=== PATIENT | male | born 1935 | race Caucasian/White ===

== ENCOUNTER 2022-03-25 17:26 | Inpatient (IN) | payer MEDICARE ==
[~2022-03-25] VITALS: Ht 157.5 cm; Wt 60.8 kg
[2022-03-25 17:33] VITALS: BP 152/76
--- NOTE | 2022-03-25 17:35 | NUR ---
86M BIBA from home with c/o SOB for 3 days. Per EMS, family reports pt was seen on unknown day and unknown facility for similar symptoms, progressively have gotten worse; Rx of FLomax and Azythromycin given with no relief. Pt tachypneic at 29 respirations upon arrival, O2 Sat 96%. Pt placed on bedside monitor, Dr. Christopher made aware of pt status.
[2022-03-25 18:09] LABS: HEMATOCRIT 24.8 % (36-52); HEMOGLOBIN 7.6 g/dL (12.0-18.0); MEAN CORPUSCULAR HEMOGLOBIN 29 pg (27-31); MEAN CORPUSCULAR HGB CONC 30 g/dL (33-37); MEAN CORPUSCULAR VOLUME 96.9 fL (80-94); PLATELET COUNT (AUTO) 353 K/uL (140-450); RED BLOOD CELL COUNT(AUTO) 2.56 MIL/uL (4.20-6.10); RED CELL DISTRIBUTION WIDTH 18.8 % (11.6-13.7); WHITE BLOOD COUNT (AUTO) 18.3 K/uL (4.8-10.8)
[2022-03-25 18:37] LABS: LYMPHOCYTES % (MANUAL) 13 % (20-46); MONOCYTES % (MANUAL) 1 % (5-12)
[2022-03-25] MEDS ORDERED: cefTRIAXone 2,000 MG in DEXTROSE 5% 100 ML IV ONE (18:50)
[2022-03-25] MEDS ORDERED: ASPIRIN 325 MG TAB PO ONE (18:50)
[2022-03-25 18:56] LABS: ALBUMIN 2.9 g/dL (3.4-5.0); ANION GAP 23.3 (8-16); ASPARTATE AMINOTRANSFERASE 57 U/L (15-37); CARBON DIOXIDE 15.9 mmol/L (21-32); CHLORIDE 132 mmol/L (98-107); GLUCOSE 96 mg/dL (74-106); POTASSIUM 5.2 mmol/L (3.5-5.1); TOTAL BILIRUBIN 0.3 mg/dL (0.0-1.0)
[2022-03-25 19:01] LABS: CREATININE 6.4 mg/dL (0.6-1.3); SODIUM SERUM 166 mmol/L (136-145); UREA NITROGEN, BLOOD 113 mg/dL (7-18)
[2022-03-25] MEDS ORDERED: cefTRIAXone 2,000 MG VIAL ONE (19:20)
[2022-03-25] MEDS ORDERED: NACL 0.9% 1,000 ML IV ONE (19:20)
--- NOTE | 2022-03-25 19:40 | NUR ---
Pt taken to CT
[2022-03-25] MEDS ORDERED: MAG SULF 2000 MG/WATER PREMIX 50 ML IV PRN (20:00)
--- NOTE | 2022-03-25 20:20 | NUR ---
Urine collected and sent to lab
--- NOTE | 2022-03-25 20:30 | NUR ---
Spoke with Piyush LAN for PICC line insertion, stated due to hx of kidney disease needs clearance from plant protection supervisor in order to place. Dr. Gale made aware.
[2022-03-25 20:36] LABS: APPEARANCE,URINE CLOUDY (CLEAR); BILIRUBIN,URINE NEGATIVE (NEGATIVE); BLOOD, URINE 3+ (NEGATIVE); COLOR,URINE YELLOW (YELLOW); LEUKOCYTE ESTERASE ,URINE NEGATIVE (NEGATIVE); NITRITE, URINE NEGATIVE (NEGATIVE); UGLUCOSE NEGATIVE (NEGATIVE)
[2022-03-25 20:49] LABS: RBC,URINE 11-20 (MOD) /HPF (0-5); WBC,URINE 16-25 (MOD) /HPF (0-5)
--- NOTE | 2022-03-25 20:50 | NUR ---
MSESI SISTER [phone]
[2022-03-25] MEDS ORDERED: ONDANSETRON 4 MG/2 ML VIAL IVP PRN (21:10)
[2022-03-25] MEDS ORDERED: MORPHINE SULFATE 2 MG/ML SYR IVP PRN (21:10)
[2022-03-25] MEDS ORDERED: POTASSIUM CHLORIDE 10 MEQ TABER PO PRN (21:10)
[2022-03-25] MEDS ORDERED: ZOLPIDEM 10 MG TAB PO PRN (21:10)
[2022-03-25] MEDS ORDERED: DOCUSATE SODIUM 100 MG GELCAP PO PRN (21:10)
[2022-03-25] MEDS ORDERED: ACETAMINOPHEN 325 MG TAB PO PRN (21:10)
[2022-03-25] MEDS ORDERED: LORazepam 2 MG/ML VIAL IVP PRN (21:10)
[2022-03-25] MEDS ORDERED: hePARIN / DEXT 5% PREMIX 250 ML IV SCH (21:15)
--- NOTE | 2022-03-25 21:22 | NUR ---
Report given for transfer of care to Tabitha LAN
[2022-03-25 22:03] LABS: PROTHROMBIN TIME 11.4 secs (10.8-13.4)
[2022-03-25] MEDS ORDERED: SODIUM POLYSTYRENE 15 GM/60 ML UDBTL PO ONE (22:10)
[2022-03-25] MEDS ORDERED: DEXTROSE 50% 50 ML SYR IVP ONE (22:10)
[2022-03-25] MEDS ORDERED: INSULIN REGULAR, HUMAN 100 UNIT/ML VIAL IVP ONE (22:10)
[2022-03-25] MEDS ORDERED: CALCIUM CHLORIDE 10% 1,000 MG in NACL 0.9% 100 ML IV SCH (22:10)
--- NOTE | 2022-03-25 22:10 | NUR ---
RECEIVED 86 YO MALE WITH DX OF CKD, NON-STEMI, AND SEPSIS SECONDARY TO PNA. A/0X1. SKIN REPORTED INTACT BUT DOES INDEED HAVE SKIN TEARS X3 TO LEFT HAND AND X1 TO LEFT ELBOW. ALSO SO OPEN SLIT AT TOP OF BUTT CRACK. CHIEF COMPLAINT RELAYED BY CAREGIVER IS "PHLEGM AND NOT EATING OR DRINKING IN 3 DAYS". C/C RELATED BY ER WAS SOB X 3 DAYS. . PT CONTINUES TO SAT IN MID TO HIGH 90'S ON ROOM AIR.
--- NOTE | 2022-03-25 22:30 | NUR ---
ORDERS RECEIVED FROM [facility] FOR CALCIUM COCKTAIL: 5 UNITS REG INSULIN IVX1, 1 AMP D50 IV X1, 1 AMP CALCIUM CHLORIDE IVX1, 38 GRAMS KEXALATE X1 PO. STAT METABOLIC PANEL ONCE COMPLETE.
[2022-03-26] VITALS: BP 163/76
[2022-03-26] MEDS ORDERED: CALCIUM CHLORIDE 10% 1,000 MG in NACL 0.9% 100 ML IV SCH (00:20)
[2022-03-26] MEDS ORDERED: DEXTROSE 50% 50 ML SYR IVP ONE (00:26)
[2022-03-26] MEDS: hePARIN / DEXT 5% PREMIX 250 ML IV SCH ×3 (00:41→19:03)
[2022-03-26] MEDS ORDERED: AZITHROMYCIN 500 MG INJ VIAL IV ONE (01:39)
[2022-03-26] MEDS: AZITHROMYCIN 500 MG in DEXTROSE 5% 250 ML IV SCH ×2 (02:22→21:39)
--- NOTE | 2022-03-26 03:00 | NUR ---
HEPARIN DRIP AND ZITHROMAX PER MD ORDERS. MUST AWAIT CAREGIVER ARRIVAL FOR MORE INFORMATION TO ADMIT THOROUGHLY. NO RESP DISTRESS. CONT TO MONITOR CALCIUM LEVEL 5.8
[2022-03-26 04:00] VITALS: BP 159/78
--- NOTE | 2022-03-26 06:00 | NUR ---
KEXALATE NOT ADMINISTERED PO. PENDING PT ABILITY TO SWALLOW WITHOUT FLUID ENTERING LUNGS. VERY MOIST SOUNDING.
[2022-03-26 07:06] LABS: CARBON DIOXIDE 16.3 mmol/L (21-32); CHLORIDE 136 mmol/L (98-107); GLUCOSE 134 mg/dL (74-106); POTASSIUM 4.3 mmol/L (3.5-5.1)
[2022-03-26 07:09] LABS: BASOPHILS # (AUTO) 0.1 K/uL (0.00-0.22); BASOPHILS % (AUTO) 0.8 % (0.0-2.0); EOSINOPHILS # (AUTO) 0.3 K/uL (0-0.4); EOSINOPHILS % (AUTO) 1.6 % (0.0-4.0); HEMOGLOBIN 7.4 g/dL (12.0-18.0); LYMPHOCYTES # (AUTO) 1.2 K/uL (2.0-11.5); LYMPHOCYTES % (AUTO) 7.4 % (20.5-51.1); MEAN CORPUSCULAR HEMOGLOBIN 29 pg (27-31); MEAN CORPUSCULAR HGB CONC 32 g/dL (33-37); MEAN CORPUSCULAR VOLUME 91.2 fL (80-94); MONOCYTES # (AUTO) 0.8 K/uL (0.8-1.0); MONOCYTES % (AUTO) 4.6 % (1.7-9.3); NEUTROPHILS # (AUTO) 14.2 K/uL (1.8-7.7); NEUTROPHILS % (AUTO) 85.6 % (42.2-75.2); PLATELET COUNT (AUTO) 284 K/uL (140-450); RED BLOOD CELL COUNT(AUTO) 2.52 MIL/uL (4.20-6.10); RED CELL DISTRIBUTION WIDTH 17.8 % (11.6-13.7); WHITE BLOOD COUNT (AUTO) 16.5 K/uL (4.8-10.8)
--- NOTE | 2022-03-26 07:30 | NUR ---
HAND-OFF REPORT TO ONCOMING NURSE ELVA. ENDORSED K EXALATE NOT GIVEN PO PENDING PT ABILITY TO SWALLOW. PT CONTINUES IN NO RESP DISTRESS AND SISTER MESSI IS AT BEDSIDE TO ANSWER FURTHER QUESTIONS CONCERNING HX. HEPARIN DRIP CONTINUES AT 700 UNITS PER HOUR (7MLS/HR). PTT WAS DRAWN AT 0645. RESULTS CONTINUE PENDING. TROPONIN LEVEL 1031 AND TRENDING DOWN. RELINQUISHED CARE OF PT AT THIS TIME
--- NOTE | 2022-03-26 07:30 | NUR ---
RECEIVED REPORT FROM [facility] NURSE SHRAVAN FOR CONTINUITY OF CARE. PT IN STABLE CONDITION, CURRENTLY AWAKE AND ON ROOM AIR. HEPARIN DRIP RUNNING ON LEFT FOREARM IV AT 700 UNITS/HR. PTT FOR 0645 PENDING.
[2022-03-26 07:39] LABS: CREATININE 6.2 mg/dL (0.6-1.3); SODIUM SERUM 168 mmol/L (136-145); UREA NITROGEN, BLOOD 110 mg/dL (7-18)
--- NOTE | 2022-03-26 07:39 | NUR ---
RECEIVED CALL FOR NEW CRITICAL LAB VALUES, SODIUM 168, BUN 110, CREATININE 6.2. NOTIFIED DR. ARANA AND CONSTRUCTION AND MAINTENANCE INSPECTOR DR. BROWN. NEW ORDERS FOR D5W AT 100ML/HR RUNNING ON IV ON RIGHT WRIST.
[2022-03-26] MEDS ORDERED: DEXTROSE 5% 1,000 ML IV SCH ×2 (07:50→08:35)
[2022-03-26 08:00] VITALS: BP 118/73
--- NOTE | 2022-03-26 08:23 | NUR ---
PER DR. BROWN, FLUIDS WERE CHANGED TO 0.45%NS AT 100ML/HR. Addendum: 03/26/22 at 0834 by Christina Marquez RN IVF CHANGED BACK TO D5W
[2022-03-26] MEDS ORDERED: NACL 0.45% 1,000 ML IV SCH (08:25)
--- NOTE | 2022-03-26 09:00 | NUR ---
CALLED LAB REGARDING PTT DRAW, PER LAB, THE MACHINE WAS DOWN FOR MAINTENANCE CLEANING AND THE RESULTS WILL BE DELAYED. NOTIFIED PHARMACY AND .
[2022-03-26] MEDS ORDERED: HEPARIN PER PHARMACY MC PRN (10:10)
--- NOTE | 2022-03-26 11:30 | NUR ---
DR. BROWN IN TO SEE PT, AND SPOKE TO FAMILY MEMBER REGARDING PLAN OF CARE. NEW ORDERS FOR SWALLOW EVAL PLACED. PT NPO. D5W INCREASED TO 125ML/HR.
[2022-03-26] MEDS: DEXTROSE 5% 1,000 ML IV SCH ×2 (11:31→19:26)
[2022-03-26 12:00] VITALS: BP 148/72
--- NOTE | 2022-03-26 12:45 | NUR ---
RECEIVED CALL FROM PHARMACY, PTT WAS 29.9. [facility], 3500 UNIT BOLUS OF HEPARIN GIVEN, AND DRIP RATE TITRATED UP BY 200 UNITS FOR NEW RATE OF 900 UNITS/HR. NEXT PTT DRAW DUE AT 1800.
[2022-03-26 16:00] VITALS: BP 146/62
--- NOTE | 2022-03-26 19:03 | NUR ---
NEW PTT 45.6, PER HEPARIN PROTOCOL, 1800 UNIT BOLUS GIVEN, AND DRIP RATE TITRATED UP BY 100 UNITS FOR NEW RATE OF 1000 UNITS/HR. NEXT DRAW AT 0000.
--- NOTE | 2022-03-26 19:10 | NUR ---
ENDORSED PT TO [facility] NURSE ANNALISULEMA FOR CONTINUITY OF CARE. PT IN STABLE CONDITION.
--- NOTE | 2022-03-26 19:20 | NUR ---
RECEIVED REPORT FROM DAY NURSE FOR CONTINUITY OF CARE. PATIENT IS ASLEEP, IN NO SIGNS OF DISTRESS, NO SIGNS OF PAIN NOTED. HOB ELEVATED. HEPARIN RUNNING ON LEFT FOREARM 10ML/HR. FAMILY AT BEDSIDE. ALL SAFETY MEASURES IN PLACE.
[2022-03-26 20:00] VITALS: BP 144/67
--- NOTE | 2022-03-26 21:40 | NUR ---
SCHEDULED IV ANTIBIOTIC GIVEN ORDERED. NO SIGNS OF DISTRESS NOTED, PATIENT IS ASLEEP.
[2022-03-27] VITALS: BP 150/75
--- NOTE | 2022-03-27 00:05 | NUR ---
PATIENT REPOSITIONED, BEDSIDE CARE DONE. HOB ELEVATED. NO SIGHS OF DISTRESS/PAIN NOTED. BED IN LOW AND LOCKED POSITION.
--- NOTE | 2022-03-27 00:10 | NUR ---
PATIENT'S LATEST PTT IS 46.2. NO CHANGE ON LAST HEPARIN PROTOCOL. WILL CONTINUE TO MONITOR THE PATIENT.
--- NOTE | 2022-03-27 01:00 | NUR ---
BEDSIDE CARE DONE, DRESSING INTACT ON SLIT ON BUTTOCKS AND ON SKIN TEARS ON RIGHT HAND. NO SIGNS OF DISTRESS NOTED.
[2022-03-27] MEDS: DEXTROSE 5% 1,000 ML IV SCH ×3 (02:55→15:34)
[2022-03-27 04:00] VITALS: BP 145/59
--- NOTE | 2022-03-27 06:10 | NUR ---
PATIENT'S LATEST PTT IS 39.3. NEW HEPARIN PROTOCOL CARRIED OUT, GAVE 1800 UNITS IVP AND NEW RATE 11ML/HR. NEXT PTT IS SCHEDULED @1305.
[2022-03-27 06:58] LABS: ANION GAP 21.2 (8-16); CARBON DIOXIDE 14.1 mmol/L (21-32); CHLORIDE 125 mmol/L (98-107); GLUCOSE 121 mg/dL (74-106); POTASSIUM 4.3 mmol/L (3.5-5.1)
[2022-03-27] MEDS: hePARIN / DEXT 5% PREMIX 250 ML IV SCH (07:08)
[2022-03-27 07:15] LABS: BASOPHILS # (AUTO) 0.1 K/uL (0.00-0.22); BASOPHILS % (AUTO) 0.8 % (0.0-2.0); EOSINOPHILS # (AUTO) 0.7 K/uL (0-0.4); EOSINOPHILS % (AUTO) 4.2 % (0.0-4.0); HEMATOCRIT 22.9 % (36-52); HEMOGLOBIN 7.1 g/dL (12.0-18.0); LYMPHOCYTES # (AUTO) 1.7 K/uL (2.0-11.5); LYMPHOCYTES % (AUTO) 10.3 % (20.5-51.1); MEAN CORPUSCULAR HEMOGLOBIN 30 pg (27-31); MEAN CORPUSCULAR HGB CONC 31 g/dL (33-37); MEAN CORPUSCULAR VOLUME 95.5 fL (80-94); MONOCYTES # (AUTO) 0.8 K/uL (0.8-1.0); MONOCYTES % (AUTO) 5.1 % (1.7-9.3); NEUTROPHILS # (AUTO) 12.9 K/uL (1.8-7.7); NEUTROPHILS % (AUTO) 79.6 % (42.2-75.2); PLATELET COUNT (AUTO) 251 K/uL (140-450); RED BLOOD CELL COUNT(AUTO) 2.39 MIL/uL (4.20-6.10); RED CELL DISTRIBUTION WIDTH 18.5 % (11.6-13.7); WHITE BLOOD COUNT (AUTO) 16.1 K/uL (4.8-10.8)
[2022-03-27 07:28] LABS: CREATININE 6.3 mg/dL (0.6-1.3); SODIUM SERUM 156 mmol/L (136-145); UREA NITROGEN, BLOOD 110 mg/dL (7-18)
--- NOTE | 2022-03-27 07:38 | NUR ---
ENDORSED PATIENT TO DAY NURSE FOR CONTINUITY OF CARE. PATIENT IN STABLE CONDITION. NEEDS MET THROUGHOUT THE SHIFT.
[2022-03-27 08:00] VITALS: BP 123/41
--- NOTE | 2022-03-27 08:36 | NUR ---
PATIENT HAS BEEN SCREENED AND CATEGORIZED MODERATE NUTRITION RISK. PATIENT WILL BE SEEN WITHIN 3-5 DAYS OF ADMISSION. REVIEWED BY LEE SMITH RD
[2022-03-27 12:00] VITALS: BP 119/53
[2022-03-27 16:00] VITALS: BP 140/61
--- NOTE | 2022-03-27 16:27 | NUR ---
SATURATION 91% ON ROOM AIR; POST NASOTRACHEAL SUCTION AND HHN PRN THERAPY; PLACED ON SUPPLEMENTAL OXYGEN AY 2 LPM VIA LIZBETH BRANHAM/RN NOTIFIED
[2022-03-27] MEDS: ALBUTEROL 0.083% 2.5 MG/3 ML NEBU INH PRN (16:41)
--- NOTE | 2022-03-27 19:35 | NUR ---
RECEIVED PT ON BED WITH GENERAL BODY WEAKNESS. PT IS WITH WET BREATHING. CONGESTION NOTED. NUMEROUS ORAL SUCTIONING PERFORMED. IV ON LEFT UPPER ARM INTACT AND PATENT AND ON RIGHT HAND OF 22G INTACT. HEPARIN DRIP IS INFUSING WELL.
--- NOTE | 2022-03-27 19:40 | NUR ---
ORAL SUCTION PERFORMED.
[2022-03-27 20:00] VITALS: BP 139/68
--- NOTE | 2022-03-27 20:48 | NUR ---
WAS CALLED TO BEDSIDE TO SUCTION PATIENT. PATIENT IS AUDIBLY COARSE BUT HAS A STRONG COUGH AND IS ABLE TO EXPECTORATE OWN SECRETIONS. USED YAUNKER TO ASSIST WITH REMOVE SECRETIONS FROM MOUTH AND BACK OF THROAT.
[2022-03-27] MEDS: AZITHROMYCIN 500 MG in DEXTROSE 5% 250 ML IV SCH (22:30)
--- NOTE | 2022-03-27 23:20 | NUR ---
DR. FINNEY DISCONTINUED HEPARIN DRIP AND CONTINUE WITH HEPARIN INJECTION.
[2022-03-28] VITALS: BP 146/67
--- NOTE | 2022-03-28 01:00 | NUR ---
ORAL SUCTION PERFORM. PT IS COOPERATIVE.
[2022-03-28] MEDS: DEXTROSE 5% 1,000 ML IV SCH (03:10)
[2022-03-28 04:00] VITALS: BP 124/76
[2022-03-28 07:36] LABS: ANION GAP 16.8 (8-16); CARBON DIOXIDE 17.3 mmol/L (21-32); CHLORIDE 119 mmol/L (98-107); GLUCOSE 96 mg/dL (74-106); POTASSIUM 4.1 mmol/L (3.5-5.1); SODIUM SERUM 149 mmol/L (136-145)
[2022-03-28 07:46] LABS: BASOPHILS # (AUTO) 0.1 K/uL (0.00-0.22); BASOPHILS % (AUTO) 0.6 % (0.0-2.0); EOSINOPHILS # (AUTO) 0.3 K/uL (0-0.4); EOSINOPHILS % (AUTO) 2.6 % (0.0-4.0); HEMATOCRIT 22.8 % (36-52); LYMPHOCYTES # (AUTO) 1.9 K/uL (2.0-11.5); LYMPHOCYTES % (AUTO) 14.3 % (20.5-51.1); MEAN CORPUSCULAR HEMOGLOBIN 29 pg (27-31); MEAN CORPUSCULAR HGB CONC 31 g/dL (33-37); MEAN CORPUSCULAR VOLUME 93.4 fL (80-94); MONOCYTES # (AUTO) 0.8 K/uL (0.8-1.0); MONOCYTES % (AUTO) 5.7 % (1.7-9.3); NEUTROPHILS # (AUTO) 10.3 K/uL (1.8-7.7); NEUTROPHILS % (AUTO) 76.8 % (42.2-75.2); PLATELET COUNT (AUTO) 275 K/uL (140-450); RED BLOOD CELL COUNT(AUTO) 2.44 MIL/uL (4.20-6.10); RED CELL DISTRIBUTION WIDTH 17.7 % (11.6-13.7); WHITE BLOOD COUNT (AUTO) 13.4 K/uL (4.8-10.8)
[2022-03-28 07:48] LABS: UREA NITROGEN, BLOOD 102 mg/dL (7-18)
[2022-03-28 08:00] VITALS: BP 106/67
--- NOTE | 2022-03-28 08:18 | NUR ---
RECEIVED ON SUPPLEMENTAL OXYGEN AT 2 LPM VIA NC PATIENT PRESENTING WITH INCREASED WOB AT 32 BPM AUDIBLE COARSE RALES BILATERAL OROPHARYNGEAL SUCTION FOR COPIOUS THIN YELLOW/HAZY "WATERY" SECRETIONS HHN PRN THERAPY GIVEN AT THIS TIME
[2022-03-28] MEDS: ALBUTEROL 0.083% 2.5 MG/3 ML NEBU INH PRN ×2 (08:24→19:41)
--- NOTE | 2022-03-28 08:32 | NUR ---
PT. WITH LOW MCKAYLA SCALE AT MODERATE TO HIGH RISK, CONTINUE TO FOLLOW PRESSURE INJURY PREVENTION INTERVENTIONS.PT. ADMITTED WITH MOISTURE ASSOCIATED SKIN DAMAGE WITH A SLIT TO BUTTOCK GROVE,RECOMMEND Z GUARD BID AND OFFLOAD. -POSITIONING: TURN AND REPOSITION PATIENT Q 2H OR SOONER USE PILLOWS TO KEEP BONY PROMINENCES FROM DIRECT CONTACT WITH SURFACES USE REPOSITIONING WEDGES TO PROVIDE 30-DEGREE ANGLE FOR SIDE LYING POSITIONS OFFLOADING OR FOAM DRESSING TO ALL TUBING TO PREVENT MEDICAL DEVICES RELATED PRESSURE INJURY -RE-EVALUATING AND MANAGING INCONTINENCE MONITOR SKIN CONDITION DURING POSITION CHANGE DO NOT MASSAGE REDNESS, BONY PROMINENCES FREQUENT ZEB-CARE AND PROVIDE BARRIER CREAMS PRN IF SOILING MOISTURE CONTROL BY OFFER BED JORDAN/URINAL /ABSORBENT PAD TO WICK AND HOLD MOISTURE KEEP SKIN DRY AND PROTECT FROM FRICTION -MANAGE FRICTION/SHEAR/MOBILITY KEEP HOB AT THE LOWEST LEVEL OF ELEVATION NO MORE THAN 30 DEGREE UNLESS OTHERWISE CONTRAINDICATED USE LIFT SHEET OR TRANSFER DEVICE TO MOVE PATIENT AND PREVENT LATERAL SHEER. PROTECT HEELS, ELBOWS BONY PROMINENCES WITH SKIN BERRIES OR FOAM DRESSING IF EXPOSED TO FRICTION OFFLOAD BILATERAL HEELS BY PLACING PILLOWS UNDER CALVES AT ALL TIMES, UNLESS OTHERWISE CONTRAINDICATED -PRESSURE REDISTRIBUTION SURFACE THERAPY BETITO ISOFLEX MATTRESS -NUTRITION: PLEASE FOLLOW RD RECOMMENDATIONS AND OFFER NUTRITION SUPPLEMENTS IF ORDERED.
[2022-03-28 12:00] VITALS: BP 137/60
--- NOTE | 2022-03-28 14:34 | NUR ---
PT WAS SEEN FOR DYSPHAGIA. PT WAS POCKETING AND COUGHING WITH TRIALS OF NECTAR THICK LIQUID. RECOMMENDATION NOTHING BY MOUTH
[2022-03-28] MEDS: Z-GUARD PASTE TP SCH (15:45)
[2022-03-28 16:00] VITALS: BP 153/63
--- NOTE | 2022-03-28 16:45 | NUR ---
DC PLANNING PT SLEEPING, THEREFORE SW OUTREACHED TO PTS EMERGENCY CONTACT, MESSI PRADO, TO GATHER COLLATERAL INFORMATION .MESSI REPORTS PT RESIDES IN A SINGLE STORY HOME WITH HER AND MEAGHAN CHU (SISTER) AT THE ADDRESS LISTED ON FILE. MESSI IDENTIFIED HERSELF, AND MEAGHAN CHU, SISTER, AND JUAN SETHI, [place], PTS EMERGENCY CONTACTS. PT IS REPORTED TO MEET WITH PCP. DR ULISES HAM, LAST VISIT TWO MONTHS AGO. PT IS REPORTED TO BE MEDICATION COMPLIANT AND RECEIVES MEDICATION FROM [facility] IN [place], WHEN NEEDED. PT IS REPORTED TO BE BED BOUND AND HAS NOT BEEN AMBULATORY SINCE OCT. PT IS REPORTED TO BE TOTAL CARE THAT SISTER, MESSI AIDS WITH. PT 'S SPEECH IS REPORTED TO BE MINIMAL AND REPORTED THAT PT HAD A PENDING SWALLOW EVAL. MESSI REPORTS PT WAS RECENTLY DX WITH [facility] IN Oct. 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 MESSI REPORTS SHE REQUESTED HOSPICE EVAL SHE DOES NOT WANT TO PROLONG PTS SUFFERING. MESSI REPORTS DC PLAN IS FOR PT TO DC HOME W/ HOSPICE. HOSPICE REFERRAL PACKET SENT, ENDORSED TO CM. BHARATI INQUIRED ON RESOURCES NEEDED, MESSI DECLINED AT THIS TIME . Addendum: 03/29/22 at 0824 by Smita NAPIER Amended: Links added.
--- NOTE | 2022-03-28 19:45 | NUR ---
RECEIVED PT ON BED AWAKE, ALERT AND BED REST. PT IS WITH GENERAL BODY WEAKNESS. O2 INHALATION IS INTACT ON BOTH NOSTRIL. IV SALINE LOCK ON RIGHT HAND AND LEFT FOREARM INTACT AND PATENT. CONTINUE MONITORING.
[2022-03-28 20:00] VITALS: BP_SYST 128; BP_SYST 164; BP_DIAS 51; BP_DIAS 62
[2022-03-28] MEDS: AZITHROMYCIN 500 MG in DEXTROSE 5% 250 ML IV SCH (22:30)
[2022-03-29] VITALS: BP 128/62
[2022-03-29] MEDS: Z-GUARD PASTE TP SCH (01:00)
[2022-03-29 04:00] VITALS: BP 160/40
[2022-03-29 07:26] LABS: ANION GAP 24.4 (8-16); CARBON DIOXIDE 11.9 mmol/L (21-32); CHLORIDE 121 mmol/L (98-107); GLUCOSE 71 mg/dL (74-106); POTASSIUM 4.3 mmol/L (3.5-5.1); SODIUM SERUM 153 mmol/L (136-145)
[2022-03-29 07:30] LABS: MEAN CORPUSCULAR HEMOGLOBIN 29 pg (27-31); MEAN CORPUSCULAR HGB CONC 31 g/dL (33-37); MEAN CORPUSCULAR VOLUME 93.5 fL (80-94); PLATELET COUNT (AUTO) 291 K/uL (140-450); RED BLOOD CELL COUNT(AUTO) 2.36 MIL/uL (4.20-6.10); RED CELL DISTRIBUTION WIDTH 17.8 % (11.6-13.7); WHITE BLOOD COUNT (AUTO) 14.2 K/uL (4.8-10.8)
--- NOTE | 2022-03-29 07:32 | NUR ---
PT IS ON STABLE CONDITION, ALL SAFETY MEASURES ARE IN PLACE. ENDORSED TO DAY SHIFT NURSE NOE FOR CONTINUITY OF CARE.
[2022-03-29 08:00] VITALS: BP 155/74
[2022-03-29 08:04] LABS: UREA NITROGEN, BLOOD 110 mg/dL (7-18)
[2022-03-29 08:05] LABS: CREATININE 6.1 mg/dL (0.6-1.3)
--- NOTE | 2022-03-29 08:16 | NUR ---
RECEIVED CALLED FROM LAB SPOKE TO CHRISTOPHER, BUN 110, CREATININE 6.1. DR. MCKNIGHT AT BEDSIDE, NOTIFIED WITH NO NEW ORDER BUT CONTINUE TO MONITOR. PT IS HOSPICE EVAL.
--- NOTE | 2022-03-29 08:58 | NUR ---
RECEIVED CALL FROM LAB SPOKE TO HARIS, CRITICAL HGB 6.9. DR. MCKNIGHT NOTIFIED WITH NO NEW ORDER. PATIENT WILL BE DISCHARGE WITH HOSPICE. RP SISTER DEMAR DARNELL.
[2022-03-29 09:00] LABS: HEMOGLOBIN 6.9 g/dL (12.0-18.0)
[2022-03-29 09:04] LABS: EOSINOPHILS % (MANUAL) 1 % (0-4); LYMPHOCYTES % (MANUAL) 21 % (20-46); MONOCYTES % (MANUAL) 5 % (5-12)
[2022-03-29] MEDS ORDERED: DEXT 5% / NACL 0.45% 1,000 ML IV SCH (09:15)
--- NOTE | 2022-03-29 11:57 | NUR ---
RECEIVED CALLED FROM [facility] SPOKE TO EDMOND, STATED TRANSPORTATION IS SET UP AND ETA 1300.
[2022-03-29 12:00] VITALS: BP 148/55
[2022-03-29 12:08] VITALS: BP 148/55
--- NOTE | 2022-03-29 12:40 | NUR ---
RECEEIVED CALLED FROM [facility] SPOKE TO STACY, [employer] WORKER TIME 1315 BY [email or web address]
--- NOTE | 2022-03-29 13:30 | NUR ---
CO D/C TO HOME. TRANSPORTED BY [facility]. TRANSPORTED BY 2 MALE, 1 FEMALE TRANSORTER PER [facility]. IV AND ID REMOVED. ALERT AND ORIENTED, NON VERBAL. ON CONT. 2 l/NC. DISCHARGE [employer] SIGNED BY SISTER MESSI. ALL PERSONAL BELONGINGS TAKEN. REMAINS STABLE.
== END 2022-03-29 13:30 | disposition home or self-care (01) | DRG 871 ==
LOC: MED 17:26 → MTU 20:38
PROVIDERS: ADMIT Family Medicine; ATTEND Family Medicine
DX: A41.9 Sepsis, unspecified organism (principal); I21.4 Non-ST elevation (NSTEMI) myocardial infarction; J69.0 Pneumonitis due to inhalation of food and vomit; J96.00 Acute respiratory failure, unspecified whether with hypoxia or hypercapnia; N17.9 Acute kidney failure, unspecified; E87.0 Hyperosmolality and hypernatremia; C34.90 Malignant neoplasm of unspecified part of unspecified bronchus or lung; E87.20 Acidosis, unspecified; G20 Parkinson's disease; F02.80 Dementia in other diseases classified elsewhere, unspecified severity, without behavioral disturbance, psychotic disturbance, mood disturbance, and anxiety; Z20.822 Contact with and (suspected) exposure to COVID-19; E87.5 Hyperkalemia; R53.81 Other malaise; Z66 Do not resuscitate; E86.1 Hypovolemia; Z85.118 Personal history of other malignant neoplasm of bronchus and lung
CPT/HCPCS: 36415; 70450; 71045; 80048; 80053; 81001; 83036; 83605; 83735; 83880; 84484; 85025; 85610; 85730; 86886; 86900; 86901; 86920; 87040; 87081; 87086; 92610; 93005; 94640; 96374; 99291; J0456; J0696; J1644; J1815; J7060; J7613